=== PATIENT | male | born 1955 | race Caucasian/White ===

== ENCOUNTER 2018-07-06 09:36 | Emergency (ER) | payer OTHER ==
[2018-07-06] MEDS ORDERED: Sodium Chloride 0.9% 1000 ML 1,000 ML IV STA ×3 (10:33→10:50)
[2018-07-06 10:44] LABS: Lactic Acid 12.9 (0.4-2.0)
[2018-07-06 10:45] LABS: AMYLASE < 30 U/L (30-110); LIPASE 120 U/L (23-300)
[2018-07-06] MEDS ORDERED: Zosyn 3.375GM/100 Ml D5W 3.375 GM/100 ML IVPB IV STA (10:51)
--- NOTE | 2018-07-06 10:55 | ERPHSYRPT ---
- History of Present Illness Time Seen by Provider: 07/06/18 10:52 Source: patient, family Exam Limitations: no limitations Patient Subjective Stated Complaint: weakness, diarrhea, vomiting 24 hours ago, and all over not feeling good Triage Nursing Assessment: Pt c/o of weakness, diarrhea, vomiting 24 hours ago, and all over not feeling good, Physician History: 62-year-old white male arrives with complaint of general malaise nausea vomiting diarrhea symptoms for 24 hours he states he just doesn't feel good states he has been clammy and sweating. Denies shortness of breath denies chest pain Past medical history is negative Past surgical history tonsillectomy Timing/Duration: yesterday Severity: moderate Modifying Factors: Improves With: nothing Associated Symptoms: nausea, vomiting, diaphoresis, malaise, other (diarrhea), No abdominal pain, No shortness of breath, No heartburn, No cough, No chills, No chest pain, No fever, No headaches, No loss of appetite, No rash, No syncope , No seizure, No weakness Allergies/Adverse Reactions: No Known Drug Allergies Allergy (Unverified 11/07/15 18:39) Home Medications: No Reportable Medications [No Reported Medications] 11/07/15 [History] Hx Influenza Vaccination/Date Given: Yes Hx Pneumococcal Vaccination/Date Given: Yes (2013) - Review of Systems Constitutional: Malaise, Weakness, Other (Sweaty), No Fever, No Chills, No Fatigue, No Lethargy Eyes: No Symptoms Ears, Nose, & Throat: No Symptoms Respiratory: Dyspnea, No Cough Cardiac: No Chest Pain, No Edema, No Syncope Abdominal/Gastrointestinal: Nausea, Vomiting, Diarrhea, No Abdominal Pain, No Constipation, No Hematemesis, No Hematochezia, No Melena, No Dysphagia Genitourinary Symptoms: No Dysuria Musculoskeletal: No Back Pain, No Neck Pain Skin: No Rash Neurological: No Dizziness, No Focal Weakness, No Sensory Changes Psychological: No Symptoms Endocrine: No Symptoms All Other Systems: Reviewed and Negative - Past Medical History Pertinent Past Medical History: No Cardiac History: Hypertension - Past Surgical History Past Surgical History: Yes - Social History Smoking Status: Current every day smoker How long have you smoked: 43 years Exposure to second hand smoke: Yes Drug Use: none Patient Lives Alone: No - Nursing Vital Signs Nursing Vital Signs: Initial Vital Signs Temperature 98.4 F 07/06/18 09:45 Pulse Rate 127 H 07/06/18 09:45 Blood Pressure 133/60 07/06/18 09:45 O2 Sat by Pulse Oximetry 99 07/06/18 09:45 Pain Scale Pain Intensity 0 - Physical Exam General Appearance: moderate distress, alert, other (pale) Eye Exam: PERRL/EOMI, eyes nml inspection Ears, Nose, Throat Exam: normal ENT inspection, TMs normal, pharynx normal, moist mucous membranes Neck Exam: normal inspection, non-tender, supple, full range of motion Respiratory Exam: normal breath sounds, lungs clear, No respiratory distress Cardiovascular Exam: regular rate/rhythm, normal heart sounds, normal peripheral pulses, tachycardia, capillary refill <2 sec Gastrointestinal/Abdomen Exam: soft, normal bowel sounds, No tenderness, No mass Back Exam: normal inspection, normal range of motion, No CVA tenderness, No vertebral tenderness Extremity Exam: normal inspection, normal range of motion, pelvis stable Neurologic Exam: alert, oriented x 3, music supervisor II-XII nml as tested Skin Exam: pale SpO2 Interpretation: normal (99%) SpO2: 99 Oxygen Delivery: Room Air - Course Nursing assessment & vital signs reviewed: Yes EKG Interpreted by Me: RATE (123 bpm), Sinus Tach, Other (EKG: Sinus tachycardia , 123 bpm,S AXISI/QIII pattern, Q waves in lead 3, no acute ST or T wave changes ) Rhythm Strip: Rate ( is) - Radiology Exams Chest X-ray Interpretation: Discussed w/ radiologist (NORMAL HEART, LUNGS, BONY THORAX ) Ordered Tests: Active Orders 24 hr Category Date Time Status Accucheck STAT Care 07/06/18 10:50 Active EKG-ER Only STAT Care 07/06/18 10:33 Active IV Insertion STAT Care 07/06/18 10:33 Active CHEST 1 VIEW (PORTABLE) Stat Exams 07/06/18 11:57 Completed AMYLASE Stat Lab 07/06/18 10:15 Completed BLOOD CULTURE Stat Lab 07/06/18 11:00 Received CBC W DIFF Stat Lab 07/06/18 10:15 Results CMP Stat Lab 07/06/18 10:15 Completed LIPASE Stat Lab 07/06/18 10:15 Completed Lactic Acid Stat Lab 07/06/18 10:33 Completed Lactic Acid Stat Lab 07/06/18 12:44 Results Manual Differential NC Stat Lab 07/06/18 10:15 Results Occult Blood,Stool Other Stat Lab 07/06/18 11:00 Completed PROTIME WITH INR Stat Lab 07/06/18 12:14 Completed PTT Stat Lab 07/06/18 12:14 Completed Pathologist Review Stat Lab 07/06/18 10:15 Results TROPONIN Q3H Lab 07/06/18 10:15 Completed TROPONIN Q3H Lab 07/06/18 13:47 Completed UA W/RFX UR CULTURE Stat Lab 07/06/18 11:17 Completed VENOUS BLOOD GAS Urgent Lab 07/06/18 10:50 Completed Medication Summary Discontinued Medications Generic Name Dose Route Start Last Admin Trade Name Freq PRN Reason Stop Dose Admin Sodium Chloride 1,000 mls @ 999 mls/hr 07/06/18 10:33 07/06/18 12:46 Sodium Chloride 0.9% 1000 Ml IV 07/06/18 11:33 Infused .Q1H1M STA Infusion Sodium Chloride 1,000 mls @ 999 mls/hr 07/06/18 10:49 07/06/18 12:45 Sodium Chloride 0.9% 1000 Ml IV 07/06/18 11:49 Infused .Q1H1M STA Infusion Sodium Chloride 1,000 mls @ 999 mls/hr 07/06/18 10:50 07/06/18 12:45 Sodium Chloride 0.9% 1000 Ml IV 07/06/18 11:50 Infused .Q1H1M STA Infusion Piperacillin Sod/Tazobactam Sod 3.375 gm in 100 mls @ 200 mls/hr 07/06/18 10: 51 07/06/18 12:44 Zosyn 3.375gm/100 Ml D5w IV 07/06/18 11:20 Infused STAT STA Infusion Sodium Chloride Confirm 07/06/18 10:51 Sodium Chloride 0.9% 1000 Ml Administered 07/06/18 10:52 Dose 3,000 mls @ ud .ROUTE .STK-MED ONE Piperacillin Sod/Tazobactam Sod Confirm 07/06/18 11:09 Zosyn 3.375gm/100 Ml D5w Administered 07/06/18 11:10 Dose 3.375 gm in 100 mls @ ud IV .STK-MED ONE Lab/Rad Data: Laboratory Result Diagrams 07/06/18 10:15 07/06/18 10:15 Laboratory Results 07/06/18 07/06/18 07/06/18 Range/Units 13:47 12:44 12:14 WBC (4.0-10.5) K/mm3 RBC (4.1-5.6) M/mm3 Hgb (12.5-18.0) gm/dl Hct (42-50) % MCV (78-100) fl MCH (26-32) pg MCHC (32-36) g/dl RDW (11.5-14.0) % Plt Count (150-450) K/mm3 MPV (6-9.5) fl Segmented Neutrophils (36.-66.) % Lymphocytes (Manual) (24-44) % Monocytes (Manual) (0.0-12.0) % Basophils (Manual) (0.0-1.0) % Nucleated RBCs % Hypochromia Platelet Estimate (NORMAL) RBC Morphology Polychromasia Poikilocytosis Anisocytosis Smear Path Review PT 20.5 H (8.83-12.87) SECONDS INR 1.75 (0.8-3.0) APTT 31.5 (24.1-36.1) SECONDS pO2/FiO2 Ratio % VBG pH (7.32-7.42) VBG pCO2 at Pat Temp (42-55) mm/Hg VBG pO2 at Pat Temp (25-40) mm/Hg VBG HCO3 (22-28) meq/L VBG O2 Sat (Mar[place]u) (95-100) VBG Base Excess (-2.0-2.0) VBG Hemoglobin VBG Carboxyhemoglobin (0.0-6.9) % T HGB POC Potassium (3.5-5.1) Sodium (137-145) mmol/L Potassium (3.5-5.1) mmol/L Chloride (98-107) mmol/L Carbon Dioxide (22-30) mmol/L Anion Gap (5-15) MEQ/L BUN (9-20) mg/dL Creatinine (0.66-1.25) mg/dL Estimated GFR ML/MIN Glucose (74-106) mg/dL Lactic Acid 10.1 H (0.4-2.0) Calcium (8.4-10.2) mg/dL Total Bilirubin (0.2-1.3) mg/dL AST (17-59) U/L ALT (0-50) U/L Alkaline Phosphatase (38-126) U/L Troponin I 0.110 H* (0.000-0.034) ng/mL Serum Total Protein (6.3-8.2) g/dL Albumin (3.5-5.0) g/dL Amylase (30-110) U/L Lipase (23-300) U/L Urine Color (YELLOW) Urine Appearance (CLEAR) Urine pH (5-6) Ur Specific Whitney (1.005-1.025) Urine Protein (Negative) Urine Ketones (NEGATIVE) Urine Blood (0-5) Melvin/ul Urine Nitrite (NEGATIVE) Urine Bilirubin (NEGATIVE) Urine Urobilinogen (0-1) mg/dL Ur Leukocyte Esterase (NEGATIVE) Urine WBC (Auto) (0-5) /HPF Urine RBC (Auto) (0-2) /HPF U Epithel Cells (Auto) (FEW) /HPF Urine Bacteria (Auto) (NEGATIVE) /HPF Urine Mucus (Auto) (NEGATIVE) /HPF Urine Culture Reflexed (NO) Urine Glucose (NEGATIVE) mg/dL Stool Occult Blood (Negative) ABO Group Rh Factor Antibody Screen (NEGATIVE) Crossmatch (COMPATIBLE) 07/06/18 07/06/18 07/06/18 Range/Units 11:17 11:15 11:15 WBC (4.0-10.5) K/mm3 RBC (4.1-5.6) M/mm3 Hgb (12.5-18.0) gm/dl Hct (42-50) % MCV (78-100) fl MCH (26-32) pg MCHC (32-36) g/dl RDW (11.5-14.0) % Plt Count (150-450) K/mm3 MPV (6-9.5) fl Segmented Neutrophils (36.-66.) % Lymphocytes (Manual) (24-44) % Monocytes (Manual) (0.0-12.0) % Basophils (Manual) (0.0-1.0) % Nucleated RBCs % Hypochromia Platelet Estimate (NORMAL) RBC Morphology Polychromasia Poikilocytosis Anisocytosis Smear Path Review PT (8.83-12.87) SECONDS INR (0.8-3.0) APTT (24.1-36.1) SECONDS pO2/FiO2 Ratio % VBG pH (7.32-7.42) VBG pCO2 at Pat Temp (42-55) mm/Hg VBG pO2 at Pat Temp (25-40) mm/Hg VBG HCO3 (22-28) meq/L VBG O2 Sat (Mar[place]u) (95-100) VBG Base Excess (-2.0-2.0) VBG Hemoglobin VBG Carboxyhemoglobin (0.0-6.9) % T HGB POC Potassium (3.5-5.1) Sodium (137-145) mmol/L Potassium (3.5-5.1) mmol/L Chloride (98-107) mmol/L Carbon Dioxide (22-30) mmol/L Anion Gap (5-15) MEQ/L BUN (9-20) mg/dL Creatinine (0.66-1.25) mg/dL Estimated GFR ML/MIN Glucose (74-106) mg/dL Lactic Acid (0.4-2.0) Calcium (8.4-10.2) mg/dL Total Bilirubin (0.2-1.3) mg/dL AST (17-59) U/L ALT (0-50) U/L Alkaline Phosphatase (38-126) U/L Troponin I (0.000-0.034) ng/mL Serum Total Protein (6.3-8.2) g/dL Albumin (3.5-5.0) g/dL Amylase (30-110) U/L Lipase (23-300) U/L Urine Color YELLOW (YELLOW) Urine Appearance SLIGHTLY CLOUDY (CLEAR) Urine pH 5.0 (5-6) Ur Specific Whitney 1.019 (1.005-1.025) Urine Protein NEGATIVE (Negative) Urine Ketones SMALL (NEGATIVE) Urine Blood NEGATIVE (0-5) Melvin/ul Urine Nitrite NEGATIVE (NEGATIVE) Urine Bilirubin NEGATIVE (NEGATIVE) Urine Urobilinogen NEGATIVE (0-1) mg/dL Ur Leukocyte Esterase NEGATIVE (NEGATIVE) Urine WBC (Auto) NONE (0-5) /HPF Urine RBC (Auto) NONE (0-2) /HPF U Epithel Cells (Auto) NONE (FEW) /HPF Urine Bacteria (Auto) NONE (NEGATIVE) /HPF Urine Mucus (Auto) SLIGHT (NEGATIVE) /HPF Urine Culture Reflexed NO (NO) Urine Glucose NEGATIVE (NEGATIVE) mg/dL Stool Occult Blood (Negative) ABO Group O Rh Factor POSITIVE Antibody Screen NEGATIVE (NEGATIVE) Crossmatch COMPATIBLE COMPATIBLE (COMPATIBLE) 07/06/18 07/06/18 07/06/18 Range/Units 11:00 10:50 10:33 WBC (4.0-10.5) K/mm3 RBC (4.1-5.6) M/mm3 Hgb (12.5-18.0) gm/dl Hct (42-50) % MCV (78-100) fl MCH (26-32) pg MCHC (32-36) g/dl RDW (11.5-14.0) % Plt Count (150-450) K/mm3 MPV (6-9.5) fl Segmented Neutrophils (36.-66.) % Lymphocytes (Manual) (24-44) % Monocytes (Manual) (0.0-12.0) % Basophils (Manual) (0.0-1.0) % Nucleated RBCs % Hypochromia Platelet Estimate (NORMAL) RBC Morphology Polychromasia Poikilocytosis Anisocytosis Smear Path Review PT (8.83-12.87) SECONDS INR (0.8-3.0) APTT (24.1-36.1) SECONDS pO2/FiO2 Ratio 21.0 % VBG pH 7.43 H (7.32-7.42) VBG pCO2 at Pat Temp 25 L (42-55) mm/Hg VBG pO2 at Pat Temp 52 H (25-40) mm/Hg VBG HCO3 16.6 L* (22-28) meq/L VBG O2 Sat ([place]u) 87.8 L (95-100) VBG Base Excess -7.0 L (-2.0-2.0) VBG Hemoglobin 6.4 L* VBG Carboxyhemoglobin 4.2 (0.0-6.9) % T HGB POC Potassium 4.7 (3.5-5.1) Sodium (137-145) mmol/L Potassium (3.5-5.1) mmol/L Chloride (98-107) mmol/L Carbon Dioxide (22-30) mmol/L Anion Gap (5-15) MEQ/L BUN (9-20) mg/dL Creatinine (0.66-1.25) mg/dL Estimated GFR ML/MIN Glucose (74-106) mg/dL Lactic Acid 12.9 H (0.4-2.0) Calcium (8.4-10.2) mg/dL Total Bilirubin (0.2-1.3) mg/dL AST (17-59) U/L ALT (0-50) U/L Alkaline Phosphatase (38-126) U/L Troponin I (0.000-0.034) ng/mL Serum Total Protein (6.3-8.2) g/dL Albumin (3.5-5.0) g/dL Amylase (30-110) U/L Lipase (23-300) U/L Urine Color (YELLOW) Urine Appearance (CLEAR) Urine pH (5-6) Ur Specific Whitney (1.005-1.025) Urine Protein (Negative) Urine Ketones (NEGATIVE) Urine Blood (0-5) Melvin/ul Urine Nitrite (NEGATIVE) Urine Bilirubin (NEGATIVE) Urine Urobilinogen (0-1) mg/dL Ur Leukocyte Esterase (NEGATIVE) Urine WBC (Auto) (0-5) /HPF Urine RBC (Auto) (0-2) /HPF U Epithel Cells (Auto) (FEW) /HPF Urine Bacteria (Auto) (NEGATIVE) /HPF Urine Mucus (Auto) (NEGATIVE) /HPF Urine Culture Reflexed (NO) Urine Glucose (NEGATIVE) mg/dL Stool Occult Blood POSITIVE A (Negative) ABO Group Rh Factor Antibody Screen (NEGATIVE) Crossmatch (COMPATIBLE) 07/06/18 07/06/18 07/06/18 Range/Units 10:15 10:15 10:15 WBC (4.0-10.5) K/mm3 RBC (4.1-5.6) M/mm3 Hgb (12.5-18.0) gm/dl Hct (42-50) % MCV (78-100) fl MCH (26-32) pg MCHC (32-36) g/dl RDW (11.5-14.0) % Plt Count (150-450) K/mm3 MPV (6-9.5) fl Segmented Neutrophils (36.-66.) % Lymphocytes (Manual) (24-44) % Monocytes (Manual) (0.0-12.0) % Basophils (Manual) (0.0-1.0) % Nucleated RBCs % Hypochromia Platelet Estimate (NORMAL) RBC Morphology Polychromasia Poikilocytosis Anisocytosis Smear Path Review PT (8.83-12.87) SECONDS INR (0.8-3.0) APTT (24.1-36.1) SECONDS pO2/FiO2 Ratio % VBG pH (7.32-7.42) VBG pCO2 at Pat Temp (42-55) mm/Hg VBG pO2 at Pat Temp (25-40) mm/Hg VBG HCO3 (22-28) meq/L VBG O2 Sat ([place]) (95-100) VBG Base Excess (-2.0-2.0) VBG Hemoglobin VBG Carboxyhemoglobin (0.0-6.9) % T HGB POC Potassium (3.5-5.1) Sodium 140 (137-145) mmol/L Potassium 4.8 (3.5-5.1) mmol/L Chloride 104 (98-107) mmol/L Carbon Dioxide 16 L* (22-30) mmol/L Anion Gap 24.9 H (5-15) MEQ/L BUN 49 H (9-20) mg/dL Creatinine 0.93 (0.66-1.25) mg/dL Estimated GFR > 60.0 ML/MIN Glucose 127 H (74-106) mg/dL Lactic Acid (0.4-2.0) Calcium 9.5 (8.4-10.2) mg/dL Total Bilirubin 2.30 H (0.2-1.3) mg/dL AST 220 H (17-59) U/L ALT 79 H (0-50) U/L Alkaline Phosphatase 174 H (38-126) U/L Troponin I 0.120 H* (0.000-0.034) ng/mL Serum Total Protein 7.2 (6.3-8.2) g/dL Albumin 3.8 (3.5-5.0) g/dL Amylase < 30 L (30-110) U/L Lipase 120 (23-300) U/L Urine Color (YELLOW) Urine Appearance (CLEAR) Urine pH (5-6) Ur Specific Whitney (1.005-1.025) Urine Protein (Negative) Urine Ketones (NEGATIVE) Urine Blood (0-5) Melvin/ul Urine Nitrite (NEGATIVE) Urine Bilirubin (NEGATIVE) Urine Urobilinogen (0-1) mg/dL Ur Leukocyte Esterase (NEGATIVE) Urine WBC (Auto) (0-5) /HPF Urine RBC (Auto) (0-2) /HPF U Epithel Cells (Auto) (FEW) /HPF Urine Bacteria (Auto) (NEGATIVE) /HPF Urine Mucus (Auto) (NEGATIVE) /HPF Urine Culture Reflexed (NO) Urine Glucose (NEGATIVE) mg/dL Stool Occult Blood (Negative) ABO Group Rh Factor Antibody Screen (NEGATIVE) Crossmatch (COMPATIBLE) 07/06/18 Range/Units 10:15 WBC 10.9 H (4.0-10.5) K/mm3 RBC 2.10 L (4.1-5.6) M/mm3 Hgb 6.1 L* (12.5-18.0) gm/dl Hct 21.1 L (42-50) % MCV 100.5 H (78-100) fl MCH 29.0 (26-32) pg MCHC 28.9 L (32-36) g/dl RDW 17.3 H (11.5-14.0) % Plt Count 131 L (150-450) K/mm3 MPV 12.5 H (6-9.5) fl Segmented Neutrophils 82 H (36.-66.) % Lymphocytes (Manual) 11 L (24-44) % Monocytes (Manual) 6 (0.0-12.0) % Basophils (Manual) 1 (0.0-1.0) % Nucleated RBCs 3 % Hypochromia 1+ Platelet Estimate NORMAL (NORMAL) RBC Morphology ABNORMAL Polychromasia 1+ Poikilocytosis 1+ Anisocytosis 2+ Smear Path Review Pending PT (8.83-12.87) SECONDS INR (0.8-3.0) APTT (24.1-36.1) SECONDS pO2/FiO2 Ratio % VBG pH (7.32-7.42) VBG pCO2 at Pat Temp (42-55) mm/Hg VBG pO2 at Pat Temp (25-40) mm/Hg VBG HCO3 (22-28) meq/L VBG O2 Sat ([place]u) (95-100) VBG Base Excess (-2.0-2.0) VBG Hemoglobin VBG Carboxyhemoglobin (0.0-6.9) % T HGB POC Potassium (3.5-5.1) Sodium (137-145) mmol/L Potassium (3.5-5.1) mmol/L Chloride (98-107) mmol/L Carbon Dioxide (22-30) mmol/L Anion Gap (5-15) MEQ/L BUN (9-20) mg/dL Creatinine (0.66-1.25) mg/dL Estimated GFR ML/MIN Glucose (74-106) mg/dL Lactic Acid (0.4-2.0) Calcium (8.4-10.2) mg/dL Total Bilirubin (0.2-1.3) mg/dL AST (17-59) U/L ALT (0-50) U/L Alkaline Phosphatase (38-126) U/L Troponin I (0.000-0.034) ng/mL Serum Total Protein (6.3-8.2) g/dL Albumin (3.5-5.0) g/dL Amylase (30-110) U/L Lipase (23-300) U/L Urine Color (YELLOW) Urine Appearance (CLEAR) Urine pH (5-6) Ur Specific Whitney (1.005-1.025) Urine Protein (Negative) Urine Ketones (NEGATIVE) Urine Blood (0-5) Melvin/ul Urine Nitrite (NEGATIVE) Urine Bilirubin (NEGATIVE) Urine Urobilinogen (0-1) mg/dL Ur Leukocyte Esterase (NEGATIVE) Urine WBC (Auto) (0-5) /HPF Urine RBC (Auto) (0-2) /HPF U Epithel Cells (Auto) (FEW) /HPF Urine Bacteria (Auto) (NEGATIVE) /HPF Urine Mucus (Auto) (NEGATIVE) /HPF Urine Culture Reflexed (NO) Urine Glucose (NEGATIVE) mg/dL Stool Occult Blood (Negative) ABO Group Rh Factor Antibody Screen (NEGATIVE) Crossmatch (COMPATIBLE) - Progress Progress: improved Progress Note: 07/06/18 12:11 62-year-old white male arrives with complaint of weakness He states he's been having vomiting and diarrhea for 2 days he states he's had melanotic stools patient was somewhat pale in appearance states he was diaphoretic earlier. He denies any chest pain. Patient on arrival with the temperature 98.4 pulse 127 respirations 25 blood pressure 133/60 saturation 99% Patient with a CBC white blood cell 10.9 hemoglobin 6.1 hematocrit 21.1 platelets 131 patient's lactate is elevated at 12.9 patient with an EKG of sinus tachycardia 1 23 bpm axis S1/Q3 pattern, no acute ST or T wave changes patient's with troponin was elevated at 0.120 Venous gases pH 7.43 PCO2 25 patient's chemistry sodium 140 potassium 4.8 chloride 104 bicarbonate 16 BUN 49 creatinine 0.93 glucose 127 patient's urinalysis pH 5.0 specific gravity 1.019 Patient's occult blood is positive patient's liver functions total bilirubin 2.3 AST 228 LT 79 alkaline phosphatase 174 anion gap 24.9 Patient with GI bleed and elevated troponin as well as dehydration patient was started on 3 L of normal saline, IV Zosyn was ordered to be given after blood cultures obtained Case is been discussed with Dr. Cullen he wishes that the patient be transferred to [facility] due to the fact that patient will need cardiology and GI. I've discussed the case with Dr. Retana she requests that we hang 1 L of packed red blood cells and patient can be transferred to [facility]. Will transfer. Impression 1 GI bleed. 2 dehydration. 3 elevated troponin. - Departure Time of Disposition: 13:15 Departure Disposition: Transfer ([facility]) Clinical Impression: Dehydration, Elevated troponin GI bleed Qualifiers: GI bleed type/associated pathology: unspecified gastrointestinal hemorrhage type Qualified Code(s): K92.2 - Gastrointestinal hemorrhage, unspecified Condition: Fair Critical Care Time: No Referrals: IVAN CULLEN MD [Primary Care Provider] -
[2018-07-06 10:58] LABS: VBG CARBOXYHEMOGLOBIN 4.2 % T HGB (0.0-6.9); VBG HCO3- 16.6 meq/L (22-28); VBG HEMOGLOBIN 6.4; VBG O2 SATURATION 87.8 (95-100); VBG POTASSIUM 4.7 (3.5-5.1); VBG pH 7.43 (7.32-7.42)
[2018-07-06 11:00] LABS: Hematocrit 21.1 % (42-50); Mean Cell Volume 100.5 fl (78-100); Mean Corpuscular Hgb Concent. 28.9 g/dl (32-36); Mean Platelet Volume 12.5 fl (6-9.5); Platelet Count 131 K/mm3 (150-450); Red Cell Distribution Width 17.3 % (11.5-14.0); White Blood Count 10.9 K/mm3 (4.0-10.5)
[2018-07-06 11:01] LABS: Hemoglobin 6.1 gm/dl (12.5-18.0)
[2018-07-06] MEDS ORDERED: Zosyn 3.375GM/100 Ml D5W 3.375 GM/100 ML IVPB IV ONE (11:09)
[2018-07-06 11:25] LABS: ANISOCYTOSIS 2+; Basophil 1 % (0.0-1.0); Hypochromia 1+; Lymphocytes 11 % (24-44); Monocyte 6 % (0.0-12.0); Neutrophils 82 % (36.-66.); Nucleated Red Blood Cell 3 %; Platelet Estimate NORMAL (NORMAL); Poikilocytosis 1+; Polychromasia 1+; Total Cells Counted 100
[2018-07-06 11:39] LABS: ALBUMIN 3.8 g/dL (3.5-5.0); ALKALINE PHOSPHATASE 174 U/L (38-126); ANION GAP 24.9 MEQ/L (5-15); BLOOD UREA NITROGEN 49 mg/dL (9-20); CHLORIDE 104 mmol/L (98-107); Calcium 9.5 mg/dL (8.4-10.2); Creatinine 1 0.93 mg/dL (0.66-1.25); Glucose 127 mg/dL (74-106); Potassium 4.8 mmol/L (3.5-5.1); SGOT/AST 220 U/L (17-59); SODIUM 140 mmol/L (137-145); Total Protein 7.2 g/dL (6.3-8.2)
[2018-07-06 11:40] LABS: Appearance SLIGHTLY CLOUDY (CLEAR); Bilirubin NEGATIVE (NEGATIVE); Blood NEGATIVE Ery/ul (0-5); Glucose NEGATIVE (NEGATIVE); Ketones SMALL (NEGATIVE); Leukocyte Esterase NEGATIVE (NEGATIVE); Mucus SLIGHT /HPF (NEGATIVE); Nitrite NEGATIVE (NEGATIVE); Protein,Urine Dip NEGATIVE (Negative); Specific Gravity 1.019 (1.005-1.025); Urobilinogen NEGATIVE mg/dL (0-1)
[2018-07-06 11:46] LABS: SGPT/ALT 79 U/L (0-50)
[2018-07-06 11:50] LABS: Carbon Dioxide 16 mmol/L (22-30)
[2018-07-06 12:23] LABS: INR 1.75 (0.8-3.0); PROTIME 20.5 SECONDS (8.83-12.87)
[2018-07-06 12:25] LABS: PTT 31.5 SECONDS (24.1-36.1)
--- NOTE | 2018-07-06 12:29 | XRAY ---
Indication: Weakness. Comparison: None Portable chest demonstrates normal heart, lungs, and bony thorax.
[2018-07-06 12:34] LABS: ABO TYPING O; Antibody Screen NEGATIVE (NEGATIVE); RH TYPING POSITIVE
[2018-07-06 12:53] VITALS: PULSE 124
[2018-07-06 13:58] VITALS: BP 118/62
[2018-07-06 14:00] LABS: Lactic Acid 10.1 (0.4-2.0)
[2018-07-06 15:06] VITALS: O2SAT 99
== END 2018-07-06 14:23 | disposition short-term general hospital (02) ==
LOC: ED 09:36
DX: K92.2 Gastrointestinal hemorrhage, unspecified (principal); E86.0 Dehydration; R74.8 Abnormal levels of other serum enzymes; I10 Essential (primary) hypertension; Z72.0 Tobacco use; R19.7 Diarrhea, unspecified; R61 Generalized hyperhidrosis
CPT/HCPCS: 36000; 36415; 36430; 71045; 80053; 81001; 82150; 82272; 82805; 82962; 83605; 83690; 84484; 85025; 85610; 85730; 86850; 86900; 86901; 86922; 87040; 93005; 96360; 96361; 96365; 99285; P9016; J2543